=== PATIENT | female | born 1980 | race Two or more races ===

== ENCOUNTER 2020-04-29 09:51 | Outpatient (CLI) | payer OTHER | END 2020-04-29 10:02 | disposition home or self-care (01) | LOC: RAD 09:51 | PROVIDERS: ATTEND Specialist | DX: J34.89 Other specified disorders of nose and nasal sinuses (principal); R05 Cough; J01.31 Acute recurrent sphenoidal sinusitis; J34.2 Deviated nasal septum ==

== ENCOUNTER 2021-05-10 02:45 | Emergency (ER) | payer OTHER ==
[~2021-05-10] VITALS: Ht 165.1 cm; Wt 63.5 kg
== END 2021-05-10 05:05 | disposition home or self-care (01) ==
LOC: ER 02:45
DX: R53.1 Weakness (principal); R55 Syncope and collapse